=== PATIENT | female | born 1950 | race Caucasian/White ===

== ENCOUNTER 2019-01-15 10:21 | Day surgery (SDC) | payer MEDICARE ==
[2019-01-13 12:29] LABS: BASOPHILS # (AUTO) 0.1 X10'3 (0-0.2); BASOPHILS % (AUTO) 1.2 % (0-1); EOSINOPHILS # (AUTO) 0.2 X10'3 (0-0.9); EOSINOPHILS % (AUTO) 2.6 % (0-6); HEMATOCRIT 44.3 % (35.0-45.0); HEMOGLOBIN 14.9 g/dl (12.0-16.0); LYMPHOCYTES # (AUTO) 2.9 X10'3 (1.1-4.8); LYMPHOCYTES % (AUTO) 32.9 % (21-51); MEAN CORPUSCULAR HEMOGLOBIN 30.2 PG (27.0-31.0); MEAN CORPUSCULAR HGB CONC 33.6 g/dL (33.0-36.5); MEAN CORPUSCULAR VOLUME 89.9 FL (78-98); MEAN PLATELET VOLUME 7.6 FL (7.4-10.4); MONOCYTES # (AUTO) 0.5 X10'3 (0-0.9); MONOCYTES % (AUTO) 5.7 % (2-12); NEUTROPHILS # (AUTO) 5.1 X10'3 (1.8-7.7); NEUTROPHILS % (AUTO) 57.6 % (42-75); PLATELET COUNT 350 X10'3 (140-440); RED BLOOD COUNT 4.93 X10'6 (4.20-5.60); RED CELL DISTRIBUTION WIDTH 12.9 % (11.5-14.5); WHITE BLOOD COUNT 8.9 X10'3 (4.5-11.0)
[2019-01-13 12:48] LABS: ALANINE AMINOTRANSFERASE 34 U/L (12-78); ALBUMIN 3.9 G/DL (3.4-5.0); ALBUMIN/GLOBULIN RATIO 1.1 (1.1-1.5); ALKALINE PHOSPHATASE 144 IU/L (46-116); ANION GAP 6 (8-16); ASPARTATE AMINO TRANSFERASE 22 U/L (10-37); BILIRUBIN,TOTAL 0.3 MG/DL (0.1-1.0); BLOOD UREA NITROGEN 14 MG/DL (7-18); BUN/CREATININE RATIO 13.5 (6.6-38.0); CALCIUM 9.3 MG/DL (8.5-10.1); CHLORIDE 105 MMOL/L (99-107); CREATININE 1.04 MG/DL (0.40-0.90); GLUCOSE 109 MG/DL (70-104); POTASSIUM 3.9 MMOL/L (3.5-5.1); SODIUM 142 MMOL/L (135-145); TOTAL CARBON DIOXIDE 31.3 MMOL/L (24-32); TOTAL PROTEIN 7.4 G/DL (6.4-8.2); eGFR 53 ML/MIN
[2019-01-13 12:49] LABS: PARTIAL THROMBOPLASTIN TIME 29 SECONDS (22-32); PROTHROMBIN TIME 9.7 SECONDS (9.0-12.0)
[~2019-01-15] VITALS: Ht 172.7 cm; Wt 68.5 kg
[2019-01-15] VITALS (13 sets, daily range): BP systolic 106–130; BP diastolic 50–80
[~2019-01-15 10:21] MED LIST: ALBU8.5H8 INH; ESCI10TA54 PO; ESTR1TAB19 PO; GUAI600T45 PO; LEVO750T21 PO; LOPE2CAP PO; LORA0.5T PO; OMEP20TA5 PO; ONDA4TAB12 PO; ROSU5TAB11 PO; SPIIN INH
[2019-01-15] MEDS ORDERED: BACL10TA PO (10:57)
[2019-01-15] MEDS ORDERED: CYAN-19 PO (10:57)
[2019-01-15] MEDS ORDERED: DIPH-423 PO (10:57)
[2019-01-15] MEDS ORDERED: CHOL10002 PO (10:57)
[2019-01-15] MEDS ORDERED: ALBU18HF2 INH (10:57)
[2019-01-15] MEDS ORDERED: diphenhydrAMINE 25mg capsule PO ONE (11:10)
[2019-01-15] MEDS ORDERED: normal saline 1000ml 1,000 ML IV SCH (11:10)
[2019-01-15] MEDS ORDERED: nitroGLYCERIN 0.4mg SUBLingual tab SL PRN (11:10)
[2019-01-15] MEDS ORDERED: LORazepam 0.5 MG tablet PO ONE (11:10)
[2019-01-15] MEDS ORDERED: LIDOcaine 1% (10mg/ml)w/preservative injection 20ml MDV ONE (12:18)
[2019-01-15] MEDS ORDERED: iohexol 350MG/ML 100ml bottle IV ONE (12:18)
[2019-01-15] MEDS ORDERED: iohexol 350 MG/ML 50ML vial IV ONE (12:18)
[2019-01-15] MEDS ORDERED: fentaNYL/PF 50MCG/1 ML 2ML syringe ONE (12:38)
[2019-01-15] MEDS ORDERED: midazolam 2 mg/2 ml injection ONE ×3 (12:38→13:15)
[2019-01-15] MEDS ORDERED: ondansetron/PF 4mg/2ml inj IV PRN (15:50)
[2019-01-15] MEDS ORDERED: proCHLORperazine 10 MG/2 ml inj IV PRN (15:50)
[2019-01-15] MEDS ORDERED: OXAZEpam 15mg capsule PO PRN (15:50)
== END 2019-01-15 19:35 | disposition home or self-care (01) ==
LOC: SSTAY O 10:21
PROVIDERS: ATTEND Internal Medicine Cardiovascular Disease
DX: I25.10 Atherosclerotic heart disease of native coronary artery without angina pectoris (principal); E78.5 Hyperlipidemia, unspecified; Z88.6 Allergy status to analgesic agent; Z79.899 Other long term (current) drug therapy
CPT/HCPCS: 36415; 71046; 80053; 85025; 85610; 85730; 93005; 93458; 99152; 99153; A6257; J1644; J2001; J2250; J3010; J7030; Q0163; Q9967; A4620; C1760; C1769

== ENCOUNTER 2019-02-10 01:42 | Emergency (ER) | payer MEDICARE, MEDICAID ==
[~2019-02-10] VITALS: Ht 172.7 cm; Wt 68.0 kg
[~2019-02-10 01:42] MED LIST changes: +ALBU18HF2 INH; -ALBU8.5H8 INH; +BACL10TA PO; +CHOL10002 PO; +CYAN-19 PO; +DIPH-423 PO; -ESCI10TA54 PO; -ESTR1TAB19 PO; -GUAI600T45 PO; -LEVO750T21 PO; -LOPE2CAP PO; -OMEP20TA5 PO; -ONDA4TAB12 PO; -ROSU5TAB11 PO; -SPIIN INH
[2019-02-10 01:52] VITALS: BP 146/60
[2019-02-10] MEDS ORDERED: LORazepam 1 MG tablet PO ONE (02:10)
[2019-02-10 02:46] LABS: BASOPHILS # (AUTO) 0.1 X10'3 (0-0.2); BASOPHILS % (AUTO) 0.4 % (0-1); EOSINOPHILS # (AUTO) 0.4 X10'3 (0-0.9); EOSINOPHILS % (AUTO) 3.2 % (0-6); HEMATOCRIT 34.9 % (35.0-45.0); HEMOGLOBIN 11.8 g/dl (12.0-16.0); LYMPHOCYTES # (AUTO) 2.4 X10'3 (1.1-4.8); LYMPHOCYTES % (AUTO) 18.1 % (21-51); MEAN CORPUSCULAR HEMOGLOBIN 30.7 PG (27.0-31.0); MEAN CORPUSCULAR VOLUME 90.4 FL (78-98); MEAN PLATELET VOLUME 6.9 FL (7.4-10.4); MONOCYTES % (AUTO) 7.9 % (2-12); NEUTROPHILS # (AUTO) 9.3 X10'3 (1.8-7.7); NEUTROPHILS % (AUTO) 70.4 % (42-75); PLATELET COUNT 562 X10'3 (140-440); RED BLOOD COUNT 3.86 X10'6 (4.20-5.60); RED CELL DISTRIBUTION WIDTH 14.1 % (11.5-14.5); WHITE BLOOD COUNT 13.2 X10'3 (4.5-11.0)
[2019-02-10 02:49] LABS: ALANINE AMINOTRANSFERASE 32 U/L (12-78); ALBUMIN 3.3 G/DL (3.4-5.0); ALKALINE PHOSPHATASE 143 IU/L (46-116); ANION GAP 9 (8-16); ASPARTATE AMINO TRANSFERASE 24 U/L (10-37); BILIRUBIN,TOTAL 0.2 MG/DL (0.1-1.0); BLOOD UREA NITROGEN 17 MG/DL (7-18); CALCIUM 9.2 MG/DL (8.5-10.1); CHLORIDE 101 MMOL/L (99-107); CREATININE 0.81 MG/DL (0.40-0.90); GLUCOSE 108 MG/DL (70-104); POTASSIUM 3.1 MMOL/L (3.5-5.1); SODIUM 141 MMOL/L (135-145); TOTAL CARBON DIOXIDE 31.1 MMOL/L (24-32); TOTAL PROTEIN 6.6 G/DL (6.4-8.2); eGFR 70 ML/MIN
[2019-02-10 03:11] LABS: PARTIAL THROMBOPLASTIN TIME 28 SECONDS (22-32)
== END 2019-02-10 03:22 | disposition home or self-care (01) ==
LOC: ER 01:42
DX: R06.02 Shortness of breath (principal); G89.29 Other chronic pain; Z98.890 Other specified postprocedural states; Z88.6 Allergy status to analgesic agent; Z88.2 Allergy status to sulfonamides; Z88.5 Allergy status to narcotic agent; Z79.899 Other long term (current) drug therapy; Z87.891 Personal history of nicotine dependence
CPT/HCPCS: 36415; 71045; 80053; 83880; 85025; 85610; 85730; 93005; 99284

== ENCOUNTER → 2021-09-27 | Emergency (ER) | payer BC, MEDICAID ==
[~2021-09-27] MED LIST changes: +CIPR-202 PO; -CYAN-19 PO; +CYAN-51 PO; +DULO-31 PO; +LACT1CAP26 PO; +LORA10TA7 PO; +POTA-197 PO; +TIOT4MIS3 PO
== END | disposition left against medical advice (07) ==
LOC: ER 14:30
DX: R10.9 Unspecified abdominal pain (principal); Z53.21 Procedure and treatment not carried out due to patient leaving prior to being seen by health care provider

== ENCOUNTER 2021-11-03 18:49 | Emergency (ER) | payer BC, MEDICAID ==
[~2021-11-03] VITALS: Ht 172.7 cm; Wt 63.6 kg
[~2021-11-03 18:49] MED LIST changes: -BACL10TA PO; -CHOL10002 PO; -CIPR-202 PO; -CYAN-51 PO; -LORA0.5T PO
[2021-11-03 18:58] VITALS: BP 120/84
[2021-11-03] MEDS ORDERED: acetaminophen 325mg tablet PO STA (19:03)
[2021-11-03 19:23] LABS: HEMOGLOBIN 15.2 g/dl (12.0-16.0); MEAN CORPUSCULAR HEMOGLOBIN 29.3 PG (27.0-31.0)
[2021-11-03 19:24] LABS: BASOPHILS % (AUTO) 0.6 % (0-1); EOSINOPHILS % (AUTO) 0 % (0-6); HEMATOCRIT 44.4 % (35.0-45.0); LYMPHOCYTES # (AUTO) 1.3 X10'3 (1.1-4.8); LYMPHOCYTES % (AUTO) 20.7 % (21-51); MEAN CORPUSCULAR HGB CONC 34.3 g/dL (33.0-36.5); MEAN CORPUSCULAR VOLUME 85.6 FL (78-98); MONOCYTES # (AUTO) 0.3 X10'3 (0-0.9); MONOCYTES % (AUTO) 4.8 % (2-12); NEUTROPHILS # (AUTO) 4.7 X10'3 (1.8-7.7); NEUTROPHILS % (AUTO) 73.9 % (42-75); PLATELET COUNT 145 X10'3 (140-440); RED BLOOD COUNT 5.19 X10'6 (4.20-5.60); RED CELL DISTRIBUTION WIDTH 13.8 % (11.5-14.5); WHITE BLOOD COUNT 6.4 X10'3 (4.5-11.0)
[2021-11-03 19:35] LABS: ALANINE AMINOTRANSFERASE 27 U/L (12-78); ALBUMIN 4.1 G/DL (3.4-5.0); ALBUMIN/GLOBULIN RATIO 1.1 (1.1-1.5); ALKALINE PHOSPHATASE 136 IU/L (46-116); ANION GAP 10 (8-16); ASPARTATE AMINO TRANSFERASE 39 U/L (10-37); BILIRUBIN,TOTAL 0.3 MG/DL (0.1-1.0); BLOOD UREA NITROGEN 12 MG/DL (7-18); BUN/CREATININE RATIO 13.3 (6.6-38.0); CALCIUM 8.8 MG/DL (8.5-10.1); CHLORIDE 93 MMOL/L (99-107); GLUCOSE 138 MG/DL (70-104); POTASSIUM 3.6 MMOL/L (3.5-5.1); SODIUM 133 MMOL/L (135-145); TOTAL CARBON DIOXIDE 30.5 MMOL/L (24-32); TOTAL PROTEIN 7.9 G/DL (6.4-8.2); eGFR 62 ML/MIN
[2021-11-03] MEDS ORDERED: SOTROVIMAB 500mg injection 500 MG in normal saline 100ml IV soln 100 ML IV ONE (19:45)
[2021-11-03] MEDS ORDERED: ondansetron/PF 4mg/2ml inj IV ONE (19:45)
[2021-11-03] MEDS ORDERED: PRED10TA23 PO (19:46)
[2021-11-03] MEDS ORDERED: BUDE180A INH (19:46)
[2021-11-03] MEDS ORDERED: ONDA-103 PO (19:46)
== END 2021-11-03 21:35 | disposition home or self-care (01) ==
LOC: ER 18:51
DX: U07.1 COVID-19 (principal); J44.1 Chronic obstructive pulmonary disease with (acute) exacerbation; R53.1 Weakness; R11.0 Nausea; R19.7 Diarrhea, unspecified; E86.0 Dehydration; R07.89 Other chest pain; R05.9 Cough, unspecified; R06.02 Shortness of breath; G89.29 Other chronic pain; F17.200 Nicotine dependence, unspecified, uncomplicated; Z98.890 Other specified postprocedural states; Z88.6 Allergy status to analgesic agent; Z88.2 Allergy status to sulfonamides; Z88.5 Allergy status to narcotic agent; Z88.8 Allergy status to other drugs, medicaments and biological substances; Z79.899 Other long term (current) drug therapy
CPT/HCPCS: 36415; 71045; 80053; 84145; 85025; 87635; 96374; 99291; C9803; J2405; J3490; M0247; Q0247

== ENCOUNTER 2021-11-07 10:01 | Emergency (ER) | payer BC, MEDICAID ==
[~2021-11-07] VITALS: Ht 172.7 cm; Wt 63.6 kg
[~2021-11-07 10:01] MED LIST changes: +BUDE180A INH; +ONDA-103 PO; +PRED10TA23 PO
[2021-11-07 10:46] VITALS: BP 144/84
[2021-11-07] MEDS ORDERED: LIDO20SO16 PO (10:46)
[2021-11-07] MEDS ORDERED: FLUT16SP2 BOTHNARES (10:46)
== END 2021-11-07 10:55 | disposition home or self-care (01) ==
LOC: ER 10:03
DX: U07.1 COVID-19 (principal); J44.9 Chronic obstructive pulmonary disease, unspecified; G89.29 Other chronic pain; Z79.899 Other long term (current) drug therapy; Z88.2 Allergy status to sulfonamides; Z88.8 Allergy status to other drugs, medicaments and biological substances
CPT/HCPCS: 71045; 99283

== ENCOUNTER 2024-10-12 00:18 | Inpatient (IN) | payer BC, OTHER ==
[2024-10-12] VITALS (8 sets, daily range): BP systolic 121–132; BP diastolic 48–70; PULSE 62–122; RESP 14–18; TEMP 97.3–98; O2SAT 96–100
[~2024-10-12] VITALS: Ht 172.7 cm; Wt 61.4 kg
[~2024-10-12 00:18] MED LIST changes: -BUDE180A INH; +BUDE180A5 INH; +FLUT16SP2 BOTHNARES; +LIDO20SO16 PO; -PRED10TA23 PO
[2024-10-12] MEDS: piperacillin/tazo 3.375gm/50ml 50 ML IV ONE (01:02)
[2024-10-12 01:13] LABS: BASOPHILS # (AUTO) 0.1 X10'3 (0-0.2); BASOPHILS % (AUTO) 0.5 % (0-1); EOSINOPHILS % (AUTO) 0.2 % (0-6); HEMATOCRIT 40.9 % (35.0-45.0); HEMOGLOBIN 13.6 g/dl (12.0-16.0); LYMPHOCYTES # (AUTO) 1.1 X10'3 (1.1-4.8); LYMPHOCYTES % (AUTO) 5.4 % (21-51); MEAN CORPUSCULAR HEMOGLOBIN 30.4 PG (27.0-31.0); MEAN CORPUSCULAR HGB CONC 33.2 g/dL (33.0-36.5); MEAN CORPUSCULAR VOLUME 91.5 FL (78-98); MEAN PLATELET VOLUME 7.2 FL (7.4-10.4); MONOCYTES # (AUTO) 0.2 X10'3 (0-0.9); NEUTROPHILS % (AUTO) 92.9 % (42-75); PLATELET COUNT 317 X10'3 (140-440); RED BLOOD COUNT 4.47 X10'6 (4.20-5.60); RED CELL DISTRIBUTION WIDTH 13.2 % (11.5-14.5); WHITE BLOOD COUNT 20.4 X10'3 (4.5-11.0)
[2024-10-12] MEDS: albuterol 2.5 MG/3 ML nebule NEB STA (01:17)
[2024-10-12 01:25] LABS: ALBUMIN 3.6 G/DL (3.4-5.0); ANION GAP 10 (8-16); BLOOD UREA NITROGEN 17 MG/DL (7-18); BUN/CREATININE RATIO 18.1 (10.0-20.0); CALCIUM 8.7 MG/DL (8.5-10.1); CHLORIDE 104 MMOL/L (99-107); CREATININE 0.94 MG/DL (0.40-0.90); GLUCOSE 157 MG/DL (70-104); POTASSIUM 3.6 MMOL/L (3.5-5.1); SODIUM 139 MMOL/L (135-145); TOTAL CARBON DIOXIDE 24.8 MMOL/L (24-32); eCRCL 51 ML/MIN; eGFR 58 ML/MIN
[2024-10-12] MEDS ORDERED: iohexol 300mg/ml 100ml inj. ONE (01:40)
[2024-10-12] MEDS: acetaminophen 1,000mg/100ml IV 100 ML IV SCH (01:44)
[2024-10-12 02:31] LABS: ALANINE AMINOTRANSFERASE 33 U/L (12-78); ALBUMIN/GLOBULIN RATIO 0.9 (1.1-1.5); ALKALINE PHOSPHATASE 142 IU/L (46-116); ASPARTATE AMINO TRANSFERASE 47 U/L (10-37); BILIRUBIN,DIRECT 0.1 MG/DL (0-0.3); BILIRUBIN,TOTAL 0.3 MG/DL (0.1-1.0); TOTAL PROTEIN 7.4 G/DL (6.4-8.2)
[2024-10-12] MEDS: normal saline 1000ml 1,000 ML IV ONE ×2 (02:34→02:42)
[2024-10-12 03:40] LABS: BILIRUBIN,URINE NEGATIVE (Neg); CLARITY,URINE CLEAR (Clear); COLOR,URINE STRAW (Yellow); GLUCOSE, URINE NEGATIVE (Neg); KETONES,URINE NEGATIVE (Neg); LEUKOCYTE ESTERASE ,URINE NEGATIVE (Neg); NITRITES, URINE NEGATIVE (Neg); OCCULT BLOOD,URINE NEGATIVE (Neg); PROTEIN,URINE NEGATIVE (Neg); UROBILINOGEN,URINE 0.2 E.U/dL (0.2-1.0)
[2024-10-12 03:41] LABS: UA COLLECTION TYPE CLN CATCH MIDSTREAM
[2024-10-12] MEDS: albuterol 2.5 MG/3 ML nebule NEB ONE (03:45)
[2024-10-12] MEDS ORDERED: OMEP20CA16 PO (04:04)
[2024-10-12] MEDS ORDERED: FLUT200B3 PO (04:04)
[2024-10-12] MEDS ORDERED: DUPI300P SQ (04:04)
[2024-10-12] MEDS ORDERED: ASPI-1265 PO (04:07)
[2024-10-12] MEDS ORDERED: magnesium sulf-water 4G/100mL 100 ML IV PRN (05:00)
[2024-10-12] MEDS ORDERED: magnesium sulf-water 2g/50mL 50 ML IV PRN (05:00)
[2024-10-12] MEDS ORDERED: potassium Cl 20 mEq SR tablet PO PRN (05:00)
[2024-10-12] MEDS ORDERED: mag hydrox/Alum hydrox/simeth 30ml oral suspension PO PRN (05:00)
[2024-10-12] MEDS: normal saline 1000ml 1,000 ML IV SCH (05:40)
[2024-10-12] MEDS: acetaminophen 325mg tablet PO PRN (07:23)
[2024-10-12 07:37] LABS: MAGNESIUM 1.8 MG/DL (1.5-2.4); POTASSIUM 3.1 MMOL/L (3.5-5.1)
[2024-10-12] MEDS: K and/or MAG REPLACEMENT MC SCH (08:00)
[2024-10-12] MEDS: docusate sod 100mg capsule PO SCH (08:00)
[2024-10-12] MEDS: heparin, porcine 5000 units/ml vial SQ SCH (08:00)
[2024-10-12] MEDS: piperacillin/tazo 3.375gm/50ml 50 ML IV SCH (08:15)
[2024-10-12] MEDS: potassium Cl 20 mEq SR tablet PO PRN (08:20)
[2024-10-12] MEDS ORDERED: oxyCODONE/APAP 5-325mg tablet PO PRN (08:45)
[2024-10-12] MEDS ORDERED: HYDROmorphone inj. 0.5 MG/0.5 ML DISP.SYRIN IV PRN (08:45)
[2024-10-12] MEDS: oxyCODONE/APAP 10/325mg tablet PO PRN (09:16)
[2024-10-12] MEDS: HYDROmorphone 1 mg/ml syringe IV PRN (11:07)
[2024-10-12] MEDS: ondansetron/PF 4mg/2ml inj IV PRN (16:21)
[2024-10-12] MEDS ORDERED: DUPILUMAB 300 MG SQ PRN (21:30)
[2024-10-12] MEDS ORDERED: albuterol 2.5 MG/3 ML nebule NEB PRN (21:35)
[2024-10-12] MEDS ORDERED: ipratropium/albuterol 3ml nebule NEB PRN (21:40)
[2024-10-13] VITALS (15 sets, daily range): BP systolic 112–145; BP diastolic 54–73; PULSE 59–122; RESP 12–19; TEMP 97.4–101.5; O2SAT 88–99
[2024-10-13] MEDS: acetaminophen 325mg tablet PO PRN (01:28)
[2024-10-13] MEDS: potassium Cl 40MEQ/1/2NS 520ml 520 ML IV PRN (02:14)
[2024-10-13 02:33] LABS: STREP A SCREEN NEGATIVE (Neg)
[2024-10-13 06:39] LABS: BASOPHILS # (AUTO) 0.1 X10'3 (0-0.2); BASOPHILS % (AUTO) 0.2 % (0-1); EOSINOPHILS # (AUTO) 0.1 X10'3 (0-0.9); EOSINOPHILS % (AUTO) 0.2 % (0-6); HEMATOCRIT 33.1 % (35.0-45.0); LYMPHOCYTES % (AUTO) 7.4 % (21-51); MEAN CORPUSCULAR HEMOGLOBIN 30.7 PG (27.0-31.0); MEAN CORPUSCULAR HGB CONC 33.3 g/dL (33.0-36.5); MEAN CORPUSCULAR VOLUME 92.1 FL (78-98); MEAN PLATELET VOLUME 7.9 FL (7.4-10.4); MONOCYTES # (AUTO) 1.1 X10'3 (0-0.9); NEUTROPHILS # (AUTO) 23.9 X10'3 (1.8-7.7); NEUTROPHILS % (AUTO) 88.2 % (42-75); PLATELET COUNT 268 X10'3 (140-440); RED CELL DISTRIBUTION WIDTH 13.6 % (11.5-14.5)
[2024-10-13 06:43] LABS: WHITE BLOOD COUNT 27.1 X10'3 (4.5-11.0)
[2024-10-13 07:07] LABS: ALANINE AMINOTRANSFERASE 70 U/L (12-78); ALBUMIN 2.6 G/DL (3.4-5.0); ALBUMIN/GLOBULIN RATIO 0.8 (1.1-1.5); ALKALINE PHOSPHATASE 131 IU/L (46-116); ANION GAP 6 (8-16); ASPARTATE AMINO TRANSFERASE 41 U/L (10-37); BILIRUBIN,TOTAL 0.3 MG/DL (0.1-1.0); BLOOD UREA NITROGEN 11 MG/DL (7-18); BUN/CREATININE RATIO 13.6 (10.0-20.0); CALCIUM 8.2 MG/DL (8.5-10.1); CHLORIDE 105 MMOL/L (99-107); CREATININE 0.81 MG/DL (0.40-0.90); GLUCOSE 130 MG/DL (70-104); MAGNESIUM 1.7 MG/DL (1.5-2.4); POTASSIUM 4.2 MMOL/L (3.5-5.1); SODIUM 137 MMOL/L (135-145); TOTAL CARBON DIOXIDE 25.6 MMOL/L (24-32); TOTAL PROTEIN 5.9 G/DL (6.4-8.2); eCRCL 59 ML/MIN; eGFR 69 ML/MIN
[2024-10-13 07:10] LABS: PLATELET ESTIMATE NORMAL; TOTAL CELLS COUNTED 100
[2024-10-13] MEDS: fluticasone nasal spray 16GM bottle NS SCH (08:00)
[2024-10-13] MEDS: (Tiotropium Br/Olodaterol HCl (Stiolto Respimat Inhal Spray) 2 PUFFS) IH SCH (08:00)
[2024-10-13] MEDS: pantoprazole 40mg Tablet.DR PO SCH (09:14)
[2024-10-13] MEDS: aspirin 81mg tab.chew PO SCH (09:15)
[2024-10-13] MEDS: albuterol 2.5 MG/3 ML nebule NEB PRN (09:33)
[2024-10-13] MEDS: budesonide 0.5mg/2ml UD nebule IH SCH (09:33)
[2024-10-13] MEDS ORDERED: FLUT200B3 INH (17:36)
[2024-10-14] VITALS (13 sets, daily range): BP systolic 109–158; BP diastolic 64–84; PULSE 86–117; RESP 14–22; TEMP 97.6–98.5; O2SAT 91–100
[2024-10-14 07:09] LABS: BASOPHILS # (AUTO) 0.1 X10'3 (0-0.2); BASOPHILS % (AUTO) 0.4 % (0-1); EOSINOPHILS # (AUTO) 0.2 X10'3 (0-0.9); EOSINOPHILS % (AUTO) 1.3 % (0-6); HEMATOCRIT 32.9 % (35.0-45.0); HEMOGLOBIN 11.1 g/dl (12.0-16.0); LYMPHOCYTES # (AUTO) 1.6 X10'3 (1.1-4.8); LYMPHOCYTES % (AUTO) 8.5 % (21-51); MEAN CORPUSCULAR HEMOGLOBIN 31.1 PG (27.0-31.0); MEAN CORPUSCULAR HGB CONC 33.8 g/dL (33.0-36.5); MEAN CORPUSCULAR VOLUME 92.1 FL (78-98); MEAN PLATELET VOLUME 7.8 FL (7.4-10.4); MONOCYTES # (AUTO) 0.7 X10'3 (0-0.9); MONOCYTES % (AUTO) 3.7 % (2-12); NEUTROPHILS # (AUTO) 16.2 X10'3 (1.8-7.7); NEUTROPHILS % (AUTO) 86.1 % (42-75); PLATELET COUNT 268 X10'3 (140-440); RED BLOOD COUNT 3.57 X10'6 (4.20-5.60); RED CELL DISTRIBUTION WIDTH 13.3 % (11.5-14.5); WHITE BLOOD COUNT 18.9 X10'3 (4.5-11.0)
[2024-10-14 07:12] LABS: ALANINE AMINOTRANSFERASE 49 U/L (12-78); ALBUMIN 2.7 G/DL (3.4-5.0); ALBUMIN/GLOBULIN RATIO 0.8 (1.1-1.5); ALKALINE PHOSPHATASE 151 IU/L (46-116); ANION GAP 7 (8-16); ASPARTATE AMINO TRANSFERASE 24 U/L (10-37); BILIRUBIN,TOTAL 0.5 MG/DL (0.1-1.0); BLOOD UREA NITROGEN 7 MG/DL (7-18); BUN/CREATININE RATIO 9.9 (10.0-20.0); CALCIUM 8.5 MG/DL (8.5-10.1); CHLORIDE 103 MMOL/L (99-107); CREATININE 0.71 MG/DL (0.40-0.90); GLUCOSE 121 MG/DL (70-104); MAGNESIUM 1.7 MG/DL (1.5-2.4); POTASSIUM 3.5 MMOL/L (3.5-5.1); SODIUM 135 MMOL/L (135-145); TOTAL CARBON DIOXIDE 24.7 MMOL/L (24-32); TOTAL PROTEIN 6.3 G/DL (6.4-8.2); eCRCL 67 ML/MIN; eGFR 80 ML/MIN
[2024-10-14] MEDS ORDERED: GADOTERATE MEGLUMINE 7.5 MMOL/15 ML VIAL IV ONE (14:32)
[2024-10-14] MEDS: (Tiotropium Br/Olodaterol HCl (Stiolto Respimat Inhal Spray) 2 PUFFS) IH SCH (19:15)
[2024-10-15] VITALS (15 sets, daily range): BP systolic 132–151; BP diastolic 58–87; PULSE 85–116; RESP 16–20; TEMP 96.7–99.3; O2SAT 83–97
[2024-10-15 07:20] LABS: BASOPHILS % (AUTO) 0.3 % (0-1); EOSINOPHILS # (AUTO) 0.4 X10'3 (0-0.9); EOSINOPHILS % (AUTO) 3.4 % (0-6); HEMATOCRIT 31.7 % (35.0-45.0); HEMOGLOBIN 10.7 g/dl (12.0-16.0); LYMPHOCYTES # (AUTO) 1.4 X10'3 (1.1-4.8); MEAN CORPUSCULAR HEMOGLOBIN 30.5 PG (27.0-31.0); MEAN CORPUSCULAR HGB CONC 33.7 g/dL (33.0-36.5); MEAN CORPUSCULAR VOLUME 90.5 FL (78-98); MEAN PLATELET VOLUME 7.6 FL (7.4-10.4); MONOCYTES # (AUTO) 0.5 X10'3 (0-0.9); MONOCYTES % (AUTO) 4.1 % (2-12); NEUTROPHILS # (AUTO) 9.7 X10'3 (1.8-7.7); NEUTROPHILS % (AUTO) 80.2 % (42-75); PLATELET COUNT 292 X10'3 (140-440); RED BLOOD COUNT 3.51 X10'6 (4.20-5.60); RED CELL DISTRIBUTION WIDTH 13.2 % (11.5-14.5); WHITE BLOOD COUNT 12.1 X10'3 (4.5-11.0)
[2024-10-15 07:29] LABS: ALANINE AMINOTRANSFERASE 39 U/L (12-78); ALBUMIN 2.5 G/DL (3.4-5.0); ALBUMIN/GLOBULIN RATIO 0.8 (1.1-1.5); ALKALINE PHOSPHATASE 161 IU/L (46-116); ANION GAP 7 (8-16); ASPARTATE AMINO TRANSFERASE 20 U/L (10-37); BILIRUBIN,TOTAL 0.6 MG/DL (0.1-1.0); BLOOD UREA NITROGEN 6 MG/DL (7-18); BUN/CREATININE RATIO 8.7 (10.0-20.0); CALCIUM 8.3 MG/DL (8.5-10.1); CHLORIDE 102 MMOL/L (99-107); CREATININE 0.69 MG/DL (0.40-0.90); GLUCOSE 114 MG/DL (70-104); MAGNESIUM 1.7 MG/DL (1.5-2.4); SODIUM 139 MMOL/L (135-145); TOTAL CARBON DIOXIDE 29.9 MMOL/L (24-32); TOTAL PROTEIN 5.8 G/DL (6.4-8.2); eCRCL 69 ML/MIN; eGFR 83 ML/MIN
[2024-10-15] MEDS: ipratropium 0.5 MG/2.5ML nebule IH SCH (08:00)
[2024-10-15] MEDS ORDERED: potassium Cl 40MEQ/1/2NS 520ml 520 ML IV PRN (08:45)
[2024-10-15] MEDS ORDERED: magnesium Cl slow-release 64mg tablet PO PRN (08:45)
[2024-10-15] MEDS ORDERED: magnesium sulf-water 2g/50mL 50 ML IV PRN (08:45)
[2024-10-15] MEDS ORDERED: magnesium sulf-water 4G/100mL 100 ML IV PRN (08:45)
[2024-10-15] MEDS ORDERED: potassium Cl 20 mEq SR tablet PO PRN (08:45)
[2024-10-15 09:53] LABS: ABG BASE EXCESS 2.2 mmol/L (-2.0-3.0); ABG HCO3 25.9 mmol/L (21.0-28.0); ABG OXYGEN SATURATION 87.8 % (94.0-98.0); ABG PCO2 (T) 37.4 mmHg (32.0-45.0); ABG PH (T) 7.459 (7.350-7.450); ALLEN'S TEST POSITIVE; FCOHb 0.9 % (0.5-1.5); FHHb 12.1 % (0.0-5.0); FMetHb 0.3 % (0.0-1.5); FO2Hb 86.7 % (94.0-98.0); PATIENT TEMPERATURE 37.1; TOTAL HEMOGLOBIN 11.6 G/dl (12.0-16.0)
[2024-10-15] MEDS: potassium Cl 20 mEq SR tablet PO PRN (09:59)
[2024-10-16] VITALS (11 sets, daily range): BP systolic 121–144; BP diastolic 61–92; PULSE 86–111; RESP 15–21; TEMP 98–99.6; O2SAT 86–97
[2024-10-16] MEDS: magnesium hydroxide 30ml (MOM) UD suspension PO PRN (05:26)
[2024-10-16 06:58] LABS: BASOPHILS % (AUTO) 0.3 % (0-1); EOSINOPHILS # (AUTO) 0.4 X10'3 (0-0.9); EOSINOPHILS % (AUTO) 4.4 % (0-6); HEMATOCRIT 32.9 % (35.0-45.0); HEMOGLOBIN 11.4 g/dl (12.0-16.0); LYMPHOCYTES # (AUTO) 1.1 X10'3 (1.1-4.8); LYMPHOCYTES % (AUTO) 10.9 % (21-51); MEAN CORPUSCULAR HGB CONC 34.6 g/dL (33.0-36.5); MEAN CORPUSCULAR VOLUME 89.6 FL (78-98); MEAN PLATELET VOLUME 7.3 FL (7.4-10.4); MONOCYTES # (AUTO) 0.7 X10'3 (0-0.9); MONOCYTES % (AUTO) 7.4 % (2-12); NEUTROPHILS # (AUTO) 7.5 X10'3 (1.8-7.7); PLATELET COUNT 320 X10'3 (140-440); RED BLOOD COUNT 3.67 X10'6 (4.20-5.60); RED CELL DISTRIBUTION WIDTH 13.5 % (11.5-14.5); WHITE BLOOD COUNT 9.7 X10'3 (4.5-11.0)
[2024-10-16 07:30] LABS: ALANINE AMINOTRANSFERASE 42 U/L (12-78); ALBUMIN 2.6 G/DL (3.4-5.0); ALBUMIN/GLOBULIN RATIO 0.7 (1.1-1.5); ALKALINE PHOSPHATASE 255 IU/L (46-116); ANION GAP 11 (8-16); ASPARTATE AMINO TRANSFERASE 29 U/L (10-37); BILIRUBIN,TOTAL 0.6 MG/DL (0.1-1.0); BLOOD UREA NITROGEN 6 MG/DL (7-18); BUN/CREATININE RATIO 8.5 (10.0-20.0); CALCIUM 8.3 MG/DL (8.5-10.1); CHLORIDE 101 MMOL/L (99-107); CREATININE 0.71 MG/DL (0.40-0.90); GLUCOSE 147 MG/DL (70-104); MAGNESIUM 1.6 MG/DL (1.5-2.4); POTASSIUM 3.9 MMOL/L (3.5-5.1); SODIUM 137 MMOL/L (135-145); TOTAL CARBON DIOXIDE 24.6 MMOL/L (24-32); TOTAL PROTEIN 6.1 G/DL (6.4-8.2); eCRCL 67 ML/MIN; eGFR 80 ML/MIN
[2024-10-16] MEDS ORDERED: AMOX-580 PO (08:36)
[2024-10-16 10:02] LABS: PLATELET ESTIMATE NORMAL; TOTAL CELLS COUNTED 100
[2024-10-16] MEDS ORDERED: LOP25T PO (12:02)
[2024-10-16] MEDS: mineral oil 133ml enema RC ONE (12:10)
[2024-10-16] MEDS: metoprolol tartrate 25mg tablet PO ONE (13:41)
[2024-10-16] MEDS ORDERED: metoprolol tartrate 25mg tablet PO SCH (20:00)
[2024-10-17] MEDS ORDERED: amox tr/potassium clavulanate 875/125mg TAB PO SCH (08:00)
== END 2024-10-16 16:00 | disposition home health service (06) | DRG 871 ==
LOC: ER 00:19 → ED HOLD 05:01 → EDBEDREQ 16:33 → PCU 3S 17:49
PROVIDERS: ADMIT Surgery Surgical Critical Care; ATTEND Family Medicine
DX: A41.9 Sepsis, unspecified organism (principal); J96.01 Acute respiratory failure with hypoxia; L03.211 Cellulitis of face; L03.221 Cellulitis of neck; M54.9 Dorsalgia, unspecified; Z20.822 Contact with and (suspected) exposure to COVID-19; G89.29 Other chronic pain; F17.210 Nicotine dependence, cigarettes, uncomplicated; E87.6 Hypokalemia; J44.9 Chronic obstructive pulmonary disease, unspecified; Z88.6 Allergy status to analgesic agent; Z88.2 Allergy status to sulfonamides; Z88.5 Allergy status to narcotic agent; Z79.899 Other long term (current) drug therapy; Z88.8 Allergy status to other drugs, medicaments and biological substances
CPT/HCPCS: 36415; 36600; 70491; 70543; 71045; 80048; 80053; 80076; 81003; 82150; 82803; 83605; 83690; 83735; 84132; 84145; 85007; 85018; 85025; 87040; 87081; 87502; 87503; 87811; 87880; 93005; 94640; 94760; 96365; 97161; 97530; 99291; A4314; A4353; A4615; A9575; G0378; J0131; J1171; J1644; J2405; J2543; J3480; J7030; Q9967

== ENCOUNTER 2025-04-29 12:10 | Emergency (ER) | payer BC, MEDICAID ==
[~2025-04-29] VITALS: Ht 172.7 cm; Wt 59.5 kg
[~2025-04-29 12:10] MED LIST changes: +AMOX-580 PO; +ASPI-1265 PO; -BUDE180A5 INH; -DULO-31 PO; +FLUT200B3 INH; -LACT1CAP26 PO; -LIDO20SO16 PO; +LOP25T PO; -LORA10TA7 PO; +OMEP20CA16 PO; -ONDA-103 PO; -POTA-197 PO
[2025-04-29 12:11] VITALS: BP 141/84; PULSE 119; RESP 16; O2SAT 95
[2025-04-29 12:33] LABS: LEUKOCYTE ESTERASE ,URINE MODERATE (Neg); NITRITES, URINE NEGATIVE (Neg); OCCULT BLOOD,URINE LARGE (Neg)
[2025-04-29 12:40] LABS: UA COLLECTION TYPE CLN CATCH MIDSTREAM
[2025-04-29 12:42] LABS: SQUAMOUS EPITHELIAL CELL,UR FEW /LPF (FEW)
--- NOTE | 2025-04-29 13:47 | Physician Documentation ---
History of Present Illness ~ Chief Complaint: Urinary Symptoms Stated Complaint: UTI Time Seen by MD: 13:01 OK to notify your PCP?: Yes Primary Medical Doctor: [facility] Source: patient Mode of Arrival: POV Exam Limitations: no limitations HPI This is a 74-year-old female who comes in complaining of UTI symptoms. The patient states that has symptoms began earlier this morning. She complains of urinary urgency frequency and pain with urination. She denies fevers chills or flank pain. She denies blood in the urine. Medication Reconciliation Allergies: Coded Allergies: NSAIDS (Non-Steroidal Anti-Inflamma (Verified Allergy, Unknown, 11/03/21) Sulfa (Sulfonamide Antibiotics) (Verified Allergy, Unknown, 11/03/21) codeine (Verified Allergy, Unknown, UPSET STOMACH, 10/12/24) dexamethasone (Unverified Allergy, Unknown, 11/03/21) metoclopramide (Verified Allergy, Unknown, 11/03/21) nabumetone (Verified Allergy, Unknown, 11/03/21) Scheduled Albuterol Sulfate (Ventolin Hfa), 2 PUFFS INH Q4HPRN, (Reported) Amox Tr/Potassium Clavulanate 875/125 MG (Augmentin 875/125 MG), 1 TAB PO BID Aspirin (Aspirin), 1 TAB PO DAILY, (Reported) Cephalexin Monohydrate (Cephalexin), 1 CAP PO Q8H Diphenhydramine Hcl (Benadryl), 50 MG PO HS, (Reported) Fluticasone Furoate (Arnuity Ellipta), 1 PUFFS INH DAILY, (Reported) Fluticasone Propionate (Flonase), 2 SPRAYS BOTHNARES DAILY Metoprolol Tartrate* (Lopressor tablet*), 25 MG PO Q12H Omeprazole (Omeprazole), 1 CAP PO PRN, (Reported) Phenazopyridine HCl (Pyridium), 1 TAB PO Q8H Tiotropium Br/Olodaterol HCl (Stiolto Respimat Inhal [place]), 2 PUFFS PO DAILY, (Reported) Past Medical History Past Medical History: Bronchitis, COPD, Chronic Pain, Chronic Back Pain Past Surgical History: orthopedic surgeries Patient History: Patient reports no known family medical history. Alcohol Use: None Drug Use: none Lives with: Family Lives In: Home Physical Exam Vital Signs: Temperature: 98.3, Source: Oral, Heart Rate: 119, Respiratory Rate: 16, BP: 141/84, Pulse Oximetry: 95, Weight: 59.500 Oxygen Flow Rate: 0 Pulse Oximetry Reflects: adequate oxygenation General Appearance: alert, WD/WN, no apparent distress Respiratory: no respiratory distress Gastrointestinal: normal palpation, non-tender, bowels sounds present Back: no CVA tenderness (No CVA tenderness to blunt percussion bilaterally.) Skin: normal color, warm/dry Progress Results/Orders Reviewed/noted all lab results: Yes Results/Orders Completed Orders - ELVIRA GUERRERO Ceftriaxone Im Kit W/Lidocaine (Rocephin (04/29/25 13:40) Vital Signs 04/29/25 04/29/25 12:11 14:08 Temp 98.3 98.3 Pulse 119 Resp 16 B/P (MAP) 141/84 Pulse Ox 95 O2 Flow Rate 0 Laboratory Tests Test 04/29/25 12:16 Urine Specimen Description Cln catch midstream Urine Color Yellow Urine Clarity Turbid Urine pH 6.0 Urine Specific Herod 1.025 Urine Protein >=300 H Urine Glucose (UA) Negative Urine Ketones Negative Urine Occult Blood Large H Urine Nitrite Negative Urine Bilirubin Negative Urine Urobilinogen 0.2 Urine Leukocyte Esterase Moderate H Urine RBC Tntc Urine WBC Tntc H Urine Squamous Epithelial Cells Few Urine Transitional Epithelial Cells Few Urine Bacteria 1+ Urine Culture Indicated Indicated Volume Urine Centrifuged 10 ml Urine Comment Microbiology Date/Time Source Procedure Growth Status 04/29/25 12:45 Urine Clean Catch Midstream Urine Culture - Preliminary NO GROWTH AFTER 1 DAY Resulted Medical Decision Making Findings Clinically the patient is well-appearing in no apparent distress. There was nothing to indicate urosepsis at this time however the urine was positive for too numerous to count WBCs, RBCs and leukocyte esterase. The patient was given Rocephin 1 g IM and we will be discharged home with Keflex 500 mg 3 times a day for 10 days and Pyridium 200 mg 3 times a day for two days. If she is drink plenty of water and follow up closely with the primary care physician for recheck in the next one or two days. Return to the ER for any worsening or concerning symptoms Additional Comment UTI. Cystitis. Pyelonephritis. Dysuria. Departure Disposition: HOME / SELF CARE / HOMELESS Impression: Primary Impression: Acute urinary tract infection Condition: Stable Discharge Instructions: Urinary Tract Infection, Adult Additional Instructions: Take the medication as prescribed drink lots of water. Follow up with the primary care physician for recheck in the next one or two days and return to the ER for any worsening or concerning symptoms Referrals: NO PRIMARY CARE PROVIDER (PCP) Prescriptions Phenazopyridine HCl (Pyridium) 200 Mg Tablet 1 TAB PO Q8H for urinary discomfort for 2 Days, #6 TAB 0 Refills Prov: ELVIRA GUERRERO 04/29/25 Cephalexin Monohydrate (Cephalexin) 500 Mg Capsule 1 CAP PO Q8H for 10 Days, #30 CAP Prov: ELVIRA GUERRERO 04/29/25 Signature Scribe Signature: No scribe Attestation: The note accurately reflects work and decisions made by me.Elvira [place] 04/30/25 09:18 ELVIRA GUERRERO Apr 29, 2025 13:47
[2025-04-29] MEDS ORDERED: PHEN-716 PO (13:49)
[2025-04-29] MEDS ORDERED: CEPH500C2 PO (13:49)
[2025-04-29] MEDS: CefTRIAXone 1000mg IM Kit (w/lidocaine diluent) IM ONE (14:02)
[2025-04-29 14:08] VITALS: TEMP 98.3
== END 2025-04-29 14:10 | disposition home or self-care (01) ==
LOC: ER 12:11
DX: N39.0 Urinary tract infection, site not specified (principal); J44.9 Chronic obstructive pulmonary disease, unspecified; Z88.2 Allergy status to sulfonamides; Z88.5 Allergy status to narcotic agent; Z88.6 Allergy status to analgesic agent; Z88.8 Allergy status to other drugs, medicaments and biological substances
CPT/HCPCS: 81001; 87088; 96372; 99283; J0696

== ENCOUNTER 2025-09-01 08:11 | Emergency (ER) | payer BC, MEDICAID ==
[~2025-09-01] VITALS: Ht 172.7 cm; Wt 53.0 kg
[~2025-09-01 08:11] MED LIST changes: +PHEN-716 PO
[2025-09-01 08:13] VITALS: TEMP 98.5
--- NOTE | 2025-09-01 09:05 | RADIOLOGY REPORT ---
EXAM: DI CHEST,SINGLE VIEW Indication: trauma Technique: Single frontal view of the chest was obtained Comparison: DI CHEST,SINGLE VIEW on DOS: 10/12/24, CHEST,SINGLE VIEW on DOS: 11/07/21, CHEST,SINGLE VIEW on DOS: 11/03/21, CHEST,SINGLE VIEW on DOS: 09/28/21 FINDINGS: Lines and Tubes: None Lungs: No focal consolidation. Pleura: No effusion. No pneumothorax. Cardiomediastinal contours: Unremarkable. Atherosclerotic vascular calcifications of the thoracic aorta are noted. Bones: No acute osseous abnormality. IMPRESSION: No acute cardiopulmonary disease.
--- NOTE | 2025-09-01 09:50 | Physician Documentation ---
History of Present Illness ~ Chief Complaint: Mechanical Fall Stated Complaint: FALL Time Seen by MD: 09:50 Primary Medical Doctor: Tico Millard [facility] Mode of Arrival: EMS HPI 74 years old female with history of COPD and osteoporosis multiple surgery on his back and neck came to the ED due to mechanical fall patient reported she fell on her sour room in the left side, denied any head trauma or loss of consciousness nausea vomiting. She complaining of left side rib pain and neck pain patient brought by neck collar in placed. Denied any chest pain shortness of breaths belly pain, fever chills nausea vomiting or any other symptoms. Tetanus within 5 Years?: No Medication Reconciliation Allergies: Coded Allergies: Sulfa (Sulfonamide Antibiotics) (Verified Allergy, Mild, Itching, 09/01/25) NSAIDS (Non-Steroidal Anti-Inflamma (Verified Allergy, Unknown, 11/03/21) codeine (Verified Allergy, Unknown, UPSET STOMACH, 09/01/25) dexamethasone (Unverified Allergy, Unknown, 09/01/25) metoclopramide (Verified Allergy, Unknown, 11/03/21) nabumetone (Verified Allergy, Unknown, 09/01/25) Scheduled Albuterol Sulfate (Ventolin Hfa), 2 PUFFS INH Q4HPRN, (Reported) Amox Tr/Potassium Clavulanate 875/125 MG (Augmentin 875/125 MG), 1 TAB PO BID Aspirin (Aspirin), 1 TAB PO DAILY, (Reported) Diphenhydramine Hcl (Benadryl), 50 MG PO HS, (Reported) Fluticasone Furoate (Arnuity Ellipta), 1 PUFFS INH DAILY, (Reported) Fluticasone Propionate (Flonase), 2 SPRAYS BOTHNARES DAILY Lidocaine (Lidocaine), 1 PATCH TOP DAILY Metoprolol Tartrate* (Lopressor tablet*), 25 MG PO Q12H Omeprazole (Omeprazole), 1 CAP PO PRN, (Reported) Phenazopyridine HCl (Pyridium), 1 TAB PO Q8H Tiotropium Br/Olodaterol HCl (Stiolto Respimat Inhal [place]), 2 PUFFS PO DAILY, (Reported) Past Medical History Past Medical History: Bronchitis, COPD, Chronic Pain, Chronic Back Pain Past Surgical History: orthopedic surgeries Patient History: Patient reports no known family medical history. Alcohol Use: None Drug Use: marijuana Lives with: Family Lives In: Home Review of Systems ROS Constitutional: No fever, dizziness, weakness. no change in appetite/weight HEENT: No blurring of the vision, No sore throat, epistaxis, tinnitus Cardiovascular: no chest pain/discomfort, palpitations, no syncope. No pedal edema Respiratory: No sob, cough,, hemoptysis Gastrointestinal: no abdominal pain, no nausea, vomiting. no diarrhea, no constipation, melena. Genitourinary: No frquency, urgency, incontinence, nocturia. No dysuria, hematuria Musculoskeletal: No arthralgia, myalgia Endocrine: No polydipsia, polyuria. No heat or cold intolerance Neurologic: No headache, vertigo. No weakness, no numbness or tingling of extremities Psychiatric: No hallucinations/delusions, no anhedonia, no suicidal ideation\ Hematologic: No bleeding or bruises Physical Exam Vital Signs: Temperature: 98.5, Source: Oral, Heart Rate: 72, Respiratory Rate: 16, BP: 116/57, Pulse Oximetry: 94, Weight: 53.000 Oxygen Flow Rate: 0 Physical Exam General: Awake and Alert, no acute distress. HEENT: Conjunctiva pink, Sclera clear, Mucus Membranes moist. has cervical collar Neck: Supple without masses and tenderness. Resp: Lungs clear to auscultation bilaterally. Heart: Regular Rate and rhythm, normal S1 and S2 ribs: mild tenderness on the left side of lower ribs neck: No midline tenderness mild tenderness on paraspinal Abdomen: Soft and non tender Extremities: No cyanosis,clubbing or edema. Skin: Warm and Dry. Neurological: Speech is clear, alert, and oriented x 4, no gross neurological deficits Progress Results/Orders Results/Orders Completed Orders - KIM MALCOLM RES Cbc/Diff (09/01/25 09:51) BMP (09/01/25 09:51) Acetaminophen 325mg Tablet (Tylenol Tabl (09/01/25 10:00) Hydrocodone/Apap 5/325mg Tab ([place] 5/32 (09/01/25 12:15) Lidocaine 5% Patch (Lidoderm 5% Patch) (09/01/25 12:15) Medications Received in ER Medications (Trade) Dose Ordered Sig/Yvette Route PRN Reason Start Time Stop Time Status Last Admin Dose Admin (Tylenol tablet) 650 mg ONCE ONCE PO 09/01/25 10:00 09/01/25 10:01 DC 09/01/25 10:43 650 MG ([place] 5/325mg tablet) 1 tab ONCE ONCE PO 09/01/25 12:15 09/01/25 12:16 DC 09/01/25 12:29 1 TAB (Lidoderm 5% Patch) 1 patch ONCE ONCE TP 09/01/25 12:15 09/01/25 12:17 DC 09/01/25 12:29 1 PATCH Vital Signs 09/01/25 09/01/25 09/01/25 09/01/25 08:13 08:18 10:15 11:18 Temp 98.5 Pulse 72 66 66 Resp 16 16 16 14 B/P (MAP) 116/57 124/63 (83) 132/68 (89) Pulse Ox 94 99 97 O2 Flow Rate 0 0 0 09/01/25 09/01/25 12:22 12:29 Pulse 67 Resp 16 18 B/P (MAP) 129/88 (102) Pulse Ox 96 O2 Flow Rate 0 Laboratory Tests Test 09/01/25 10:04 White Blood Count 11.1 H Red Blood Count 5.00 Hemoglobin 14.4 Hematocrit 43.4 Mean Corpuscular Volume 86.8 Mean Corpuscular Hemoglobin 28.7 Mean Corpuscular Hemoglobin Concent 33.1 Red Cell Distribution Width 14.9 H Platelet Count 380 Mean Platelet Volume 7.2 L Neutrophils (%) (Auto) 73.4 Lymphocytes (%) (Auto) 18.7 L Monocytes (%) (Auto) 4.8 Eosinophils (%) (Auto) 2.2 Basophils (%) (Auto) 0.9 Neutrophils # (Auto) 8.1 H Lymphocytes # (Auto) 2.1 Monocytes # (Auto) 0.5 Eosinophils # (Auto) 0.2 Basophils # (Auto) 0.1 CBC Comment Sodium Level 139 Potassium Level 4.0 Chloride Level 104 Carbon Dioxide Level 27.1 Anion Gap 8 Blood Urea Nitrogen 13 Creatinine 0.75 Estimated GFR/1.73 m2 76 BUN/Creatinine Ratio 17.3 Glucose Level 112 H Calcium Level 8.7 Albumin 3.7 Chemistry Comments EKG/XRAY/CT/US/VASC/MRI Chest X-Ray : Additional Comments EXAM: DI CHEST,SINGLE VIEW Indication: trauma Technique: Single frontal view of the chest was obtained Comparison: DI CHEST,SINGLE VIEW on DOS: 10/12/24, CHEST,SINGLE VIEW on DOS: 11/07/21, CHEST,SINGLE VIEW on DOS: 11/03/21, CHEST,SINGLE VIEW on DOS: 09/28/21 FINDINGS: Lines and Tubes: None Lungs: No focal consolidation. Pleura: No effusion. No pneumothorax. Cardiomediastinal contours: Unremarkable. Atherosclerotic vascular calcifications of the thoracic aorta are noted. Bones: No acute osseous abnormality. IMPRESSION: No acute cardiopulmonary disease. : Impression EXAM: CT CT CERVICAL SPINE INDICATION: Neck trauma EXAM DATE: 09/01/2025 10:12 AM COMPARISON: CT of the neck dated 10/12/2024. TECHNIQUE: Multiple axial CT images of the cervical spine were obtained using bone algorithm. Sagittal and coronal reformatting was done. Bone and soft tissue windows were reviewed. Radiation Dose Information: CT Dose: CTDI volume is 13.6 mGy. Dose-length product is 314.6 mGy*cm FINDINGS: There is 5 mm anterolisthesis at C7-T1. There is reversal of the cervical lordosis. There is posterior instrumented fusion at C2- T2 with bilateral screws. Laminectomies noted at C4- C7. No acute cervical spine fracture is identified. The vertebral body heights are intact. Multilevel intervertebral disc space narrowing. No suspicious osseous lesions are identified. Multilevel disc degeneration. No significant spinal stenosis. Multilevel neural foraminal stenosis is noted. There is no prevertebral soft tissue swelling. There is centrilobular emphysema in the lung apices. IMPRESSION: 1. No evidence of acute cervical spine fracture. 2. Posterior instrumented fusion at C2-T2 with bilateral screws. 3. Multilevel degenerative changes in the cervical spine. Medical Decision Making Additional information obtaine: family Findings 74 years old female with history of COPD brought to the ED due to mechanical fall, she reported she fell in the shower on her left side, she did not lose consciousness denied any nausea vomiting and head trauma. Patient diagnosis included but not limited to rib fracture, cervical spine frac ture and dislocation and less likely , spinal cord injury, cervical disc herniation, contusion, Labs and imaging was reviewed there is no any acute fracture or dislocation, possibly it was soft injury Differential Dx:Considerations: Include: Contusion(s) Departure Time of Disposition: 12:19 Disposition: 01 HOME / SELF CARE / HOMELESS Impression: Primary Impression: Fall Additional Impression: Soft tissue injury Condition: Stable Additional Instructions: You do not have any cervical spine fracture, your chest imaging sounds reassuring, possibly your pain is due to soft tissue injury, take Tylenol and ibuprofen and lidocaine patch for your pain, follow-up with your primary care doctor and return to ED if your symptoms getting worse. Referrals: NO PRIMARY CARE PROVIDER (PCP) Prescriptions Lidocaine (Lidocaine) 4 % Adh..patch 1 PATCH TOP DAILY for 5 Days, #5 PATCH 0 Refills Prov: KIM MALCOLM, ESTUARDO 09/01/25 Education Educated: Patient Signature Scribe Signature: no scribe Attestation: The resident MD attestation: I examined the patient and discussed the plan with attending physician KIM Sheikh, RES Sep 01, 2025 09:50
[2025-09-01 10:15] LABS: MEAN PLATELET VOLUME 7.2 FL (7.4-10.4); RED CELL DISTRIBUTION WIDTH 14.9 % (11.5-14.5)
[2025-09-01 10:24] LABS: CREATININE 0.75 MG/DL (0.40-0.90); TOTAL CARBON DIOXIDE 27.1 MMOL/L (24-32); eCRCL 55 ML/MIN; eGFR 76 ML/MIN
--- NOTE | 2025-09-01 11:06 | RADIOLOGY REPORT ---
EXAM: CT CT CERVICAL SPINE INDICATION: Neck trauma EXAM DATE: 09/01/2025 10:12 AM COMPARISON: CT of the neck dated 10/12/2024. TECHNIQUE: Multiple axial CT images of the cervical spine were obtained using bone algorithm. Sagittal and coronal reformatting was done. Bone and soft tissue windows were reviewed. Radiation Dose Information: CT Dose: CTDI volume is 13.6 mGy. Dose-length product is 314.6 mGy*cm FINDINGS: There is 5 mm anterolisthesis at C7-T1. There is reversal of the cervical lordosis. There is posterior instrumented fusion at C2- T2 with bilateral screws. Laminectomies noted at C4- C7. No acute cervical spine fracture is identified. The vertebral body heights are intact. Multilevel intervertebral disc space narrowing. No suspicious osseous lesions are identified. Multilevel disc degeneration. No significant spinal stenosis. Multilevel neural foraminal stenosis is noted. There is no prevertebral soft tissue swelling. There is centrilobular emphysema in the lung apices. IMPRESSION: 1. No evidence of acute cervical spine fracture. 2. Posterior instrumented fusion at C2-T2 with bilateral screws. 3. Multilevel degenerative changes in the cervical spine.
[2025-09-01 12:22] VITALS: BP 129/88; PULSE 67; O2SAT 96
[2025-09-01] MEDS ORDERED: LIDO1ADH78 TOP (12:24)
[2025-09-01 12:29] VITALS: RESP 18
[2025-09-01] MEDS: HYDROcodone/acetaminophen 5mg/325mg tablet PO ONE (12:29)
== END 2025-09-01 12:43 | disposition home or self-care (01) ==
LOC: ER 08:12
DX: S19.9XXA Unspecified injury of neck, initial encounter (principal); G89.29 Other chronic pain; J44.9 Chronic obstructive pulmonary disease, unspecified; F12.90 Cannabis use, unspecified, uncomplicated; Z88.2 Allergy status to sulfonamides; Z88.5 Allergy status to narcotic agent; Z88.8 Allergy status to other drugs, medicaments and biological substances; Z79.82 Long term (current) use of aspirin; Z79.899 Other long term (current) drug therapy; Z98.890 Other specified postprocedural states; W18.2XXA Fall in (into) shower or empty bathtub, initial encounter; Y93.89 Activity, other specified; Y92.89 Other specified places as the place of occurrence of the external cause; Y99.8 Other external cause status
CPT/HCPCS: 36415; 71045; 72125; 80048; 85025; 99284